=== PATIENT | female | born 1945 | race Caucasian/White ===

== ENCOUNTER 2017-12-04 10:30 | Outpatient (RCR) | payer OTHER, SELFPAY ==
--- NOTE | 2017-11-27 16:59 | PT.OIE ---
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) Provider Visit Care Team Role Provider Type Laureen Baxter MD Attending Provider Non-Staff Family Provider Primary Care Provider Specialty: Internal Medicine Address: [id number], [place], [address] Email: Physical Therapy Initial Evaluation PT-OP-A Visit Information Start: 11/27/17 10:14 Freq: Status: Active Protocol: Document 11/27/17 11:22 LRN (Rec: 11/27/17 12:49 LRN [id number]) Out-Patient Physical Therapy Visit Information Visit Information Visit Type Initial Evaluation Visit Start Time 11:22 Visit Stop Time 12:22 Total Visit Minutes 60 Visit Number 1 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 Current Complaints Intermittent L lateral hip pain that radiates into the groin & anter thigh History of Current Condition Pt reports insidious onset of L hip pain that comes and goes . Is most noticeable at night when she goes to bed and with rolling in bed. Treatment Goals Patient/Caregiver Goals Pt goal is to learn what to do to prevent onset of pain. Prior Functional Status Baseline Function- ADL's Independent Baseline Function- Mobility Independent Current Functional Impairments (Reported) Functional Limitations- ADL's Positioning in bed at night. Rolling in bed. Functional Limitations- Mobility/Gait After walking pain onset. Functional Limitations- Recreation/ Yoga Hobbies Personal Factors Other Personal Factors That May Effect Hx: Guillain-Carbondale' 2008. Therapy/Recovery Possible leg length descrepancy. PT-OP-C Subjective Start: 11/27/17 10:14 Freq: Status: Active Protocol: Document 11/27/17 11:22 LRN (Rec: 11/27/17 12:49 LRN [id number]) OP-PT Subjective Patient Comments Patient Comments Pain daily in L hip, intermittent. By evening it is most painful. Hard to get comfortable. Turning is very uncomfortable 6/10. Takes Acetaminophen almost every night. Walks several times a week, sometimes aggravating pain. Patient Reported Progress Improving OP-PT Pain Assessment Pain Assessment Grid Paper Pain Assessment Grid Completed Yes Location L hip Pain Location Details Lateral hip Intensity 0 Description Aching Phantom Description- Other From lateral hip, across upper thigh to medial knee Frequency Intermittent Radiating Location Groin and anterior upper thigh . Pain Aggravating Factors Position Other Pain Aggravating Factors Lying and Rolling in bed. Pain Alleviating Factors Heat Home Pain Medication Use Pain Medications Used Yes Home Pain Medication Frequency Almost daily Acetaminophen, IBP very occasionally. Patient Goal Wants to know what she is doing to cause the bursa to be inflammed and what she can do to prevent the pain. PT-OP-F Manual Assessment Start: 11/27/17 10:14 Freq: Status: Active Protocol: Document 11/27/17 11:22 LRN (Rec: 11/27/17 16:38 LRN [id number]) Manual Assessments Soft Tissue Assessment Soft Tissue Mobility Assessment No pain with palpation at L lateral hip. Pain felt at L SIJ and general discomfort at sacrum. Swelling noted at sacral region. PT-OP-G Mobility & Gait Start: 11/27/17 10:14 Freq: Status: Active Protocol: Document 11/27/17 11:22 LRN (Rec: 11/27/17 16:38 LRN [id number]) OP Mobility Evaluation Bed Mobility Rolling Painful Supine to and from Sit Poor mechanics OP Gait Assessment Comments Gait Comments Gait appeared normal PT-OP-H Neuro Start: 11/27/17 10:14 Freq: Status: Active Protocol: Document 11/27/17 11:22 LRN (Rec: 11/27/17 16:38 LRN [id number]) Deep Tendon Reflex & Clonus Assessment Deep Tendon Reflex Achilles Bilaterally Deep Tendon Reflex 2+ Normal Patellar Bilaterally Deep Tendon Reflex 3+ Normal But Brisk PT-OP-J Posture/Palpation/Skin Start: 11/27/17 10:14 Freq: Status: Active Protocol: Document 11/27/17 11:22 LRN (Rec: 11/27/17 16:38 LRN [id number]) Posture Evaluation Position Standing Evaluation View Posterior, Anterior, Lateral Head/C-Spine Posture Forward Head T-Spine Posture Flattened Pelvis Posture Anteriorly Tilted Ankle/Foot Posture (L) Pronated (R) Pronated Foot Arch (L) No Arch (R) No Arch Comments Posture Comments Standing with shoes: Pelvis: Posterior left. : L foot forward. Standing w/o shoes: Pelvis: Posterior left, Iliac Crest/ PSIS low on left. : ASIS/PSIS low on right. Supine: L leg long > Long sit: R leg long. Palpation Assessment Location Lumbosacral Palpation Findings Edema Muscle Guarding Tenderness Palpation Details L3 and L5 Right rotated and tender. Sacrum: L ALA and GALILEO stuck in flex. Swelling at sacral region. Lumbar paraspinals: muscle guarding. March Test: Left moves > right PT-OP-K Range of Motion Start: 11/27/17 10:14 Freq: Status: Active Protocol: Document 11/27/17 11:22 LRN (Rec: 11/27/17 16:38 LRN [id number]) Lumbar Spine Range of Motion Lumbar Spine Active Degrees Testing Position Standing Flexion 100 Extension 15 Comments SB ~ 20 deg's bilaterally with stiffness of the lumbar spine . Hip Goniometric Range of Motion Hip Measured in Degrees Right Passive Straight Leg Raise 100 Internal Rotation 40 External Rotation 85 Left Passive Testing Position Supine Straight Leg Raise 100 Internal Rotation 60 External Rotation 75 Hip ROM Limitations Hip ROM Limitations Soft Tissue Tightness Comments Adduction: 30 deg's left, 15 deg's right. PT-OP-L Special Tests Start: 11/27/17 10:14 Freq: Status: Active Protocol: Document 11/27/17 11:22 LRN (Rec: 11/27/17 16:38 LRN [id number]) Special Tests Hip Special Tests Scour Test Test Results negative Posterior Labral Test Test Results negative Anterior Labral Test Comments Pain in groin Stinchfield Resisted Hip Flexion Test Results negative CAR Test Results negative PT-OP-M Strength Start: 11/27/17 10:14 Freq: Status: Active Protocol: Document 11/27/17 11:22 LRN (Rec: 11/27/17 16:38 LRN [id number]) Hip Strength Hip Manual Muscle Testing Right Comments Normal except Hip AB and IR is 3/5. Left Comments Normal except hip ext is 4/5, IR is 3/5. PT-OP-Q Treatments Start: 11/27/17 10:14 Freq: Status: Active Protocol: Document 11/27/17 11:22 LRN (Rec: 11/27/17 16:38 LRN [id number]) Therapeutic Exercises Supine Exercises DLS: Double Heel Slides Resistance Friction Comments Pt holds back almost flat. Therapeutic Activity Therapeutic Activity Transfer training Name Rolling side to side & Supine> Sit Comments Poor awareness with supine>sit . Self-Care/Home Management Treatment Education Patient Education Joint Protection Other Education Discussed/reviewed stabilization of core to minimize stress on lumbar spine. PT-OP-T Assessment and Plan Start: 11/27/17 10:14 Freq: Status: Active Protocol: Document 11/27/17 11:22 LRN (Rec: 11/27/17 16:38 LRN [id number]) Physical Therapy Assessment Rehab Potential Rehabilitation Potential Good Evaluation Complexity Number of Personal Factors/Comorbidities 1-2 Number of Body Systems Impaired 4 or More Clinical Presentation at Evaluation Evolving Impairments Impairments Activity Tolerance Pain ROM Strength Transfers Other Impairments Bed mobility. Other Concerns Age Related Concerns 72 years old. Barriers to Rehabilitation Hx: Guillain-[place]' Goals Three Impairment Pt lacks self care program Addictions Recovery Specialist Goal (LTG) Pt will be independent in a self care/HEP to manage and prevent L hip pain. LTG Duration 01/25/18 Two Impairment Pt limited in exercise tolerance (yoga) Short Term Goal (STG) Pt will be able to return to yoga exercise with minimal onset of L hip. STG Duration 12/25/17 One Impairment Intermittent L groin/anterior thigh pain rated 6-7/10. Fpc Goal (LTG) Decrease L groin/anterior thigh/lateral hip pain to no greater than 2/10 for minimal discomfort at nighttime and with bed mobility. LTG Duration 01/25/18 Assessment Summary Assessment I was only able to elicit L groin/anterior thigh pain only with testing of her anterior labrum, but not consistently. I was unable to palpate L hip pain at the bursa site, but she complained of pain with positioning in L sidelie; therefore her pain may be more mechanical in nature (lumbar spine or SIJ related). She did have positional changes (R rotation) in her sacrum and lumbar spine with tenderness at L3 and L5 as well as muscle guarding present in the left paraspinals. She may have a long left leg, with gross measurements from ASIS to medial malleolus of a 1 cm difference and she demonstrates signs of a possible posteriorly rotated L innominate. The pt appears to have a mechanical (lumbar, sacral, pelvic) and soft tissue dysfunction with decreased hip mobility. The pt manages what she believes is a leg length discrepancy with use of an arch support in her R shoe, which does appear to level her Ileum heights. Further assessment is needed as the pt is able to improve her pelvic/lumbar stability. Physical Therapy Plan Frequency and Duration Frequency of Treatment 2x/Week Plan of Care Start Date 11/27/17 Plan of Care End Date 01/25/18 Therapeutic Interventions Therapeutic Interventions Home Exercise Program Joint Mobilizations Manual Therapy Neuromuscular Re-education Patient/Caregiver Education Self-Care/Home Management Soft Tissue Mobilization Taping Therapeutic Activities Therapeutic Exercises Modalities Cold Pack/Ice Massage Electric Stimulation Hot Packs Ultrasound Next Visit Focus/Plan Next Note Type Treatment Note Next Visit Plan Pt will try to come 2x/week for the first 1-2 weeks, then decrease to 1x/week due to difficulties with transportation as she is coming from [facility]. Therapy will continue with STM /JMT (lumbar, sacrum), core stabilization/HEP, self care in proper transfer technique, hip/trunk ROM ex's. End with CP or MH/ES.
--- NOTE | 2018-04-22 10:04 | PT.OPDS ---
Current Diagnoses Pain in left hip (12/04/17) Provider Visit Care Team Role Provider Type Laureen Baxter MD Attending Provider Non-Staff Family Provider Primary Care Provider Specialty: Internal Medicine Address: [id number], [place], [address] Email: Visit Number Visit Number 2 Discharge Summary PT-OP-B Current Condition Start: 11/27/17 10:14 Freq: Status: Active Protocol: Document 11/27/17 11:22 LRN (Rec: 11/27/17 16:47 LRN [id number]) Current Condition History of Current Condition Onset Date 6 months ago. Current Complaints Intermittent L lateral hip pain that radiates into the groin & anter thigh History of Current Condition Pt reports insidious onset of L hip pain that comes and goes . Is most noticeable at night when she goes to bed and with rolling in bed. Treatment Goals Patient/Caregiver Goals Pt goal is to learn what to do to prevent onset of pain. Prior Functional Status Baseline Function- ADL's Independent Baseline Function- Mobility Independent Current Functional Impairments (Reported) Functional Limitations- ADL's Positioning in bed at night. Rolling in bed. Functional Limitations- Mobility/Gait After walking pain onset. Functional Limitations- Recreation/ Yoga Hobbies Personal Factors Other Personal Factors That May Effect Hx: Guillain-Buf[place]' 2008. Therapy/Recovery Possible leg length descrepancy. PT-OP-C Subjective Start: 11/27/17 10:14 Freq: Status: Active Protocol: Document 12/04/17 10:34 LRN (Rec: 12/04/17 11:18 LRN [id number]) OP-PT Subjective Patient Comments Patient Comments Hasn't had as much pain in the L hip, but now has pain in the R hip. Couple days without pain. Doing ex's & walking more. PT-OP-T Assessment and Plan Start: 11/27/17 10:14 Freq: Status: Active Protocol: Document 04/22/18 09:58 LRN (Rec: 04/22/18 10:04 LRN [id number]) Physical Therapy Assessment Rehab Potential Rehabilitation Potential Good Evaluation Complexity Number of Personal Factors/Comorbidities 1-2 Number of Body Systems Impaired 4 or More Clinical Presentation at Evaluation Evolving Impairments Impairments Activity Tolerance Pain ROM Strength Transfers Other Impairments Bed mobility. Other Concerns Age Related Concerns 72 years old. Barriers to Rehabilitation Hx: Guillain-[place]' Goals Three Impairment Pt lacks self care program Intermediate Goal (LTG) Pt will be independent in a self care/HEP to manage and prevent L hip pain. LTG Duration 01/25/18 Goal Partially Met Two Impairment Pt limited in exercise tolerance (yoga) Short Term Goal (STG) Pt will be able to return to yoga exercise with minimal onset of L hip. STG Duration 12/25/17 Pt unavailable for final assessment. One Impairment Intermittent L groin/anterior thigh pain rated 6-7/10. Clinical Quality Assurance Associate Goal (LTG) Decrease L groin/anterior thigh/lateral hip pain to no greater than 2/10 for minimal discomfort at nighttime and with bed mobility. LTG Duration 01/25/18 Pt unavailable for final assessment. Assessment Summary Assessment Pt is being discharged from therapy due to lack of attendance. She was seen for one treatment session and cancelled her remaining 2 visits. The pt was last seen 12/04/2017. Pt is unavailable for final assessment. Physical Therapy Plan Discharge Physical Therapy Discharge Reasons No Longer Attending PT Discharge Comments Thank you for your referral.
== END 2018-05-28 11:23 ==
LOC: PHYS 10:30
PROVIDERS: Family Provider Internal Medicine; PCP Internal Medicine; Visit Provider Internal Medicine
DX: M25.552 Pain in left hip (principal)
CPT/HCPCS: 97110; 97162; 97530